=== PATIENT | female | born 1955 | race Caucasian/White ===

== ENCOUNTER 2023-11-26 08:44 | Emergency (ER) | payer OTHER ==
[~2023-11-26] VITALS: Ht 170.2 cm; Wt 61.4 kg
[2023-11-26] MEDS: MORPHINE SULFATE 4 MG/ML SYR/VIAL IV ONE (10:00)
[2023-11-26] MEDS: AZITHROMYCIN 500MG/ 250ML 250 ML IV ONE (11:09)
[2023-11-26] MEDS: cefTRIAXone 1GM/50ML D5W 50 ML IV ONE (11:09)
[2023-11-26] MEDS: ONDANSETRON HCL 4 MG/2 ML VIAL IV ONE (11:38)
[2023-11-26] MEDS: HYDROcodone-ACET 5/325MG TAB PO ONE (11:38)
[2023-11-26 12:09] LABS: Urine Bacteria NONE SEEN /hpf (None Seen); Urine Blood Negative /uL (Negative); Urine Clarity HAZY (Clear); Urine Color Yellow (Yellow); Urine Hyaline Cast MANY /lpf (0 - 2); Urine Mucus FEW (None Seen); Urine Protein, UAD 2+ (Negative); Urine Specific Gravity 1.034 (1.001-1.035); Urine WBC 4 /hpf (0 - 5)
[2023-11-26 13:23] VITALS: BP 144/78; PULSE 75; RESP 17; O2SAT 94
== END 2023-11-26 13:27 | disposition home or self-care (01) ==
LOC: ER 08:44 → EDUNIT# 08:44 → EDBD 08:44 → ER 13:27
DX: J18.9 Pneumonia, unspecified organism (principal); M54.6 Pain in thoracic spine; M25.511 Pain in right shoulder; R51.9 Headache, unspecified; W01.0XXA Fall on same level from slipping, tripping and stumbling without subsequent striking against object, initial encounter; Y93.89 Activity, other specified; Y92.89 Other specified places as the place of occurrence of the external cause; Y99.8 Other external cause status
CPT/HCPCS: 70450; 71111; 72040; 72100; 72170; 81001; 96365; 96366; 96368; 96375; 99285; J0456; J0696; J2405